=== PATIENT | female | born 1975 | race Caucasian/White ===

== ENCOUNTER 2016-08-24 13:14 | Inpatient (IN) ==
[2016-08-24 15:16] LABS: Basophils % 0.1 % (0.0-0.8); Eosinophils # 0.2 10*3/uL (0.0-0.87); Eosinophils % 2.3 % (0.00-10.9); Hemoglobin 9.7 GM/DL (12.0-16.0); Immature Granulocytes % 1.8 %; Immature Granulocytes Absolute 0.15 #; Lymphocytes # 1.2 10*3/uL (1.4-4.0); Lymphocytes % 14.4 % (21.3-54.2); Mean Corpuscular HGB Conc 33.4 GM/DL (32-36); Mean Corpuscular Hemoglobin 29 PG (27-34); Mean Corpuscular Volume 85.3 FL (87-102); Mean Platelet Volume 9.5 FL (9.6-12.0); Monocytes # 0.7 10*3/uL (0.11-0.8); Monocytes % 7.6 % (1.7-12.7); Neutrophils # 6.3 10*3/uL (1.4-7.4); Neutrophils % 73.8 % (38.7-73.9); Platelet Count 230 T/CUMM (130-400); Red Cell Distribution Width 14.3 % (9.3-17.3); White Blood Count 8.6 T/CUMM (4-12)
[2016-08-24 15:30] LABS: INR 0.9; PT Patient Result 9.4 SECS; Partial Thromboplastin Time 29.9 SECS (0-40)
[2016-08-24 15:37] LABS: Apearance,Urine Slightly Hazy (Clear); Bacteria,Urine Occasional /HPF (Few); Bilirubin,Urine Negative (Negative); Blood, Urine Negative (Negative); Glucose,Urine (UA) Negative (Negative); Ketones,Urine Negative (Negative); Mucus,Urine Occasional /LPF (Occasional); Nitrite,Urine Negative (Negative); Protein,Urine Negative; RBC,Urine 1 /HPF (0-4); Squamous Epithelial Cell,Urine Occasional /HPF (0-10); Urine Color Yellow (Yellow); Urine Urobilinogen < 2.0 EU/DL (0.2-1.0); WBC,Urine 2 /HPF (0-6)
[2016-08-24 15:49] LABS: Albumin 2.4 G/DL (3.4-5.0); Bilirubin,Total 0.5 MG/DL (0.2-1.0); Calcium 8.6 MG/DL (8.5-10.1); Osmolality,Calculated 280.3 MOS/KG (273-304); Potassium 3.8 MMOL/L (3.5-5.1); Total Protein 5.3 G/DL (6.4-8.3); Uric Acid 5.2 MG/DL (2.6-6.0)
--- NOTE | 2016-08-24 15:56 | Ultrasound Report ---
Biophysical profile Clinical history: PIH Comparison: 08/06/2016 Technique: Multiple transabdominal real-time scans were obtained. Limited color flow scans were obtained. Ultrasound images were captured and stored. Findings: +2 is given for breathing, gross body movements, tone and qualitative amniotic fluid volume. The reactive NST was not performed. There is a single intrauterine fetus in the cephalic presentation with a heart rate 157 BPM. Posterior placenta. Impression: Biophysical profile score of 8. Normal , low risk for chronic asphyxia Ultrasound images were captured and stored. PROCEDURE INTERPRETED AT [facility] DEPARTMENT OF RADIOLOGY Final Report Signed by: Dr. Kristen Gardiner
--- NOTE | 2016-08-24 16:01 | Ultrasound Report ---
Exam: US OB >= 14 weeks fetus Date: 08/24/2016 2:43 PM Comparison: 08/06/2016 Indication: IVF, PIH Technique:[Multiple transabdominal real-time scans were obtained of the pelvis. Color-flow scans obtained. Ultrasound images were captured and stored.] Findings: There is a single intrauterine fetus in cephalic presentation with a heart rate 149 BPM. The posterior placenta is not low-lying in position with cervical length of 43 mm. Maternal ovaries are not identified. No measurements were obtained of the cerebellum, cisterna magna, or ventricular atria. Limited evaluation of spine, face, and extremities. No definite pathology is identified on the scans of the heart, stomach, kidneys, bladder, and cord insertion. 3 vessel cord documented. Nuchal cord. S/D ratio 2.4 with normal flow during diastole. No reversal of flow. Measurements obtained are as follows: BPD 38 weeks 5 days HC 37 weeks 4 days AC 39 weeks 2 days FL 36 weeks 1 day EFW 7 lbs. 10 oz. +/- 1 lb. 2 oz. GP greater than 97% WING 157.1 mm FL/AC out of range Impression: Single intrauterine fetus in the cephalic presentation at 38 weeks 0 days +/- 2 weeks 5 days with EDC 09/07/2016. EDC of prior exam 09/18/2016. Nuchal cord. FL/AC out of range which is of questionable significance but follow-up scans may be helpful for further evaluation. PROCEDURE INTERPRETED AT [facility] DEPARTMENT OF RADIOLOGY Final Report Signed by: Dr. Kristen Gardiner
[2016-08-24] MEDS ORDERED: LABETALOL 200 MG TABLET ONE (20:56)
[2016-08-24] MEDS: LABETALOL 200 MG TABLET PO SCH (20:59)
[2016-08-24] MEDS: VERAPAMIL 120 MG TABLET PO SCH (20:59)
[2016-08-25] MEDS: LABETALOL 200 MG TABLET PO SCH ×2 (09:42→21:37)
[2016-08-25] MEDS ORDERED: LABETALOL 300 MG TABLET PO SCH (12:27)
[2016-08-25] MEDS ORDERED: hydrALAZINE 20 MG/1 ML VIAL IV PRN (12:28)
--- NOTE | 2016-08-25 12:57 | OB/GYN History & Physical ---
History of Present Illness History of present illness: ATTENDING COVERING Ms. Matute is a 40 year old female Pt. 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 Godinez. On arrival patient blood pressure noted to be elevated 176/94 and ranged from 140's-190s/70-80s. Pt. kept overnight for observation and blood pressure medication was increased to Labetalol 200mg po TID and pre-E labs drawn along with 24hr urine protein was started. OB u/s for cord dopplers and interval growth with bpp performed. This morning patient complains of mild headache however has hx of migraines. Denies any blurred vision. Pt states her home blood pressures ranged in the 120s/70 up until last week when it was 160/100. Pt. states that for the past week she has not been monitoring her blood pressure. Pt. denies vaginal bleeding, leakage of fluid, decreased movement or contractions. Home Medications Medication Instructions Recorded Confirmed Type Labetalol Tab [Trandate Tab] 200 mg PO DAILY 08/24/16 08/24/16 History Verapamil Tab [Calan Tab] 120 mg PO DAILY 08/24/16 08/24/16 History Allergies Allergy/AdvReac Type Severity Reaction Status Date / Time codeine AdvReac Intermediate Nausea Verified 10/09/15 08:32 12 point system: reviewed and no additional remarkable complaints except as stated Medical,Surgical,& Family Hx - Medical History Neurology: History of: Migraine No history of: Seizures Genitourinary: History of: Kidney Stones Hematology: History of: Blood Disorders (factor VIII) Comment Only: Bleeding Problems (hemophilia) Reproductive: History of: Reproductive Problems (IVF) - Surgical History Reproductive Surgeries: Surgical HX of;: Section, Dilation and Curettage - Social History 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 - Constitutional Vitals: Vital Signs Temp Pulse Resp BP 08/25/16 03:58 97 F L 95 H 17 145/86 08/25/16 00:00 97 F L 76 18 156/77 08/24/16 20:00 98 F 86 17 163/90 08/24/16 16:00 83 20 133/83 General appearance: no acute distress - Antepartum / Post Antepartum Exam Cervix - Dilatation: deferred Heart Rate: category 1 tracing, + accelerations [place]: irritability - Respiratory Respiratory exam: Present: clear to auscultation bilaterally - Cardiovascular Cardiovascular exam: Present: regular rate and rhythm - Extremities Exam Extremities exam: Present: normal inspection, edema Assessment and Plan (1) Chronic hypertension in obstetric context in third trimester Status: Acute Assessment and plan: 1. admit to labor and delivery 2. increase labetalol to 300mg po tid 3. consult with Dr. Escobar regarding pt hx of hemophilia A carrier in case of delivery 4. 24 hr urine protein 5. repeat Pre-E labs 6. cont. ext monitoring 7. I spent 20 minutes discussing with the patient what my concerns were and included superimposed severe pre-E, I explained the plan is to wait until the 24hr urine protein to return unless her blood pressures continued to be elevated and unresponsive to ivp labetalol or hydralazine. Pt. expressed her understanding. all questions answered. Current Visit: Yes (2) Obesity Status: Acute Current Visit: Yes (3) Migraine Status: Acute Current Visit: Yes (4) Advanced maternal age in Status: Acute Current Visit: Yes (5) Hemophilia A carrier, symptomatic Status: Acute Current Visit: No (6) Previous delivery affecting , antepartum Status: Acute Current Visit: Yes Results - Labs CBC & BMP: 08/24/16 15:04 08/24/16 15:04
[2016-08-25 13:57] LABS: INR 0.9; PT Patient Result 9.7 SECS; Partial Thromboplastin Time 29.7 SECS (0-40)
[2016-08-25] MEDS ORDERED: FACTOR VIII IV PRN (14:08)
[2016-08-25 14:24] LABS: Alanine Aminotransferase 19 U/L (13-56); Albumin 2.4 G/DL (3.4-5.0); Alkaline Phosphatase 133 U/L (45-117); Aspartate Amino Transferase 12 U/L (0-37); Bilirubin,Total < 0.39 MG/DL (0.2-1.0); Blood Urea Nitrogen 8 MG/DL (7-18); Calcium 8.6 MG/DL (8.5-10.1); Glucose 96 MG/DL (74-106); Osmolality,Calculated 276.4 MOS/KG (273-304); Potassium 3.9 MMOL/L (3.5-5.1); Sodium 140 MMOL/L (136-145); Total Protein 5.3 G/DL (6.4-8.3)
[2016-08-25 14:38] LABS: Basophils % 0.1 % (0.0-0.8); Eosinophils # 0.2 10*3/uL (0.0-0.87); Eosinophils % 1.8 % (0.00-10.9); Hematocrit 30.2 VOL% (35.7-47.0); Hemoglobin 10.4 GM/DL (12.0-16.0); Immature Granulocytes % 1.6 %; Immature Granulocytes Absolute 0.15 #; Lymphocytes # 1.1 10*3/uL (1.4-4.0); Mean Corpuscular HGB Conc 34.4 GM/DL (32-36); Mean Corpuscular Hemoglobin 29 PG (27-34); Mean Corpuscular Volume 85.1 FL (87-102); Mean Platelet Volume 9.7 FL (9.6-12.0); Monocytes # 0.7 10*3/uL (0.11-0.8); Monocytes % 6.9 % (1.7-12.7); Neutrophils # 7.4 10*3/uL (1.4-7.4); Neutrophils % 77.6 % (38.7-73.9); Platelet Count 236 T/CUMM (130-400); Red Blood Count 3.55 MC/CUMM (3.8-5.5); Red Cell Distribution Width 14.3 % (9.3-17.3); White Blood Count 9.5 T/CUMM (4-12)
[2016-08-25] MEDS ORDERED: ONDANSETRON 4 MG/2 ML VIAL IV PRN (14:39)
[2016-08-25] MEDS: MULTIVITAMIN (PRENATAL) TABLET PO SCH (16:11)
[2016-08-25] MEDS: AMPICILLIN INJ 1,000 MG in SODIUM CHLORIDE 0.9% 100 ML IV SCH ×2 (16:12→21:37)
[2016-08-25] MEDS: ACETAMINOPHEN 325 MG TABLET PO PRN (16:13)
[2016-08-25 18:01] LABS: Collection Time,Urine 24 HOURS; Total Volume,Urine 1800 ML (400-2000)
[2016-08-25 18:06] LABS: Total Protein 24 Hr Ur Result 396 MG/24HR (0-149.1)
[2016-08-25 18:35] LABS: Creatinine 24 Hr Urine Result 1.98 G/24HR (0.60-1.80); Creatinine Clearance Urine 197.03 ML/MIN (70-115)
[2016-08-25] MEDS: VERAPAMIL 120 MG TABLET PO SCH ×2 (19:16→21:35)
[2016-08-25] MEDS: BETAMETH SODIUM PHOS/ACETATE 30 MG/5 ML VIAL IM SCH (19:28)
[2016-08-26] MEDS: AMPICILLIN INJ 1,000 MG in SODIUM CHLORIDE 0.9% 100 ML IV SCH ×4 (03:25→21:09)
[2016-08-26] MEDS: LABETALOL 200 MG TABLET PO SCH ×3 (05:37→21:49)
[2016-08-26] MEDS ORDERED: FACTOR VIII IV PRN (08:50)
--- NOTE | 2016-08-26 08:52 | Oncology Progress Note ---
Oncology Subjective PN Interval history: Female patient with failure a with symptomatic carrier status. The patient received factor last year for a D&C. She is admitted at approximately 35 weeks gestation with hypertension. She appears stable at the moment. Her was at bedside. Her last was performed I believe in [place] in 2011. Preoperative factor was given. She also occasionally requires factor with dental procedures. She states that her baseline factor VIII level is around 27% . This is of course while not . Factor VIII level should rise somewhat during . I have placed an order for 4000 units of factor VIII if she is to proceed with during this hospitalization. I would not anticipate a postoperative dose unless there is evidence of abnormal bleeding Exam - Constitutional Vitals: Period Temp Pulse Resp BP Sys/Newell Pulse Ox Last 24 Hr 97.5 F-98.5 F 75-101 16-18 126-182/60-88 Results - Labs CBC & BMP: 08/25/16 13:25 08/25/16 13:25
[2016-08-26] MEDS: MULTIVITAMIN (PRENATAL) TABLET PO SCH (09:37)
[2016-08-26] MEDS: ACETAMINOPHEN 325 MG TABLET PO PRN (09:37)
--- NOTE | 2016-08-26 11:09 | OB/GYN Progress Note ---
Assessment and Plan (1) Pre-eclampsia added to pre-existing hypertension Status: Acute Assessment and plan: IUP at 35 weeks 4 days with severe PIH. She is requiring 2 medications for her normal BPs. She is due for her next FLM today. I spoke to M in [place], Dr. Cortez who agrees with the plan to deliver tomorrow. Current Visit: Yes (2) Hemophilia A carrier, symptomatic Status: Acute Assessment and plan: for factor VIII tomorrow before delivery. we appreciate Dr. Escobar help Current Visit: No (3) Previous delivery affecting , antepartum Status: Acute Assessment and plan: for repeat tomorrow . R/B/A/C reviewed with the pt Current Visit: Yes DIGITAL MEDIA COORDINATOR - PN: Subj Interval history: The pt is a 40 y/o at 35 wks 4 days wiht IVF donor eggs adn sperm who is well known to me. She is a symptomatic carrier for Hemophlia A and has had a in the past and required recombinant factor VIII. She was admitted for elevated BPs and headaches. Exam DIGITAL MEDIA COORDINATOR - Constitutional Vitals: Vital Signs Temp Pulse Resp BP 08/26/16 08:00 97.8 F 93 H 18 137/75 08/26/16 03:31 97.9 F 92 H 16 126/60 08/25/16 23:41 97.5 F L 101 H 16 132/68 08/25/16 20:00 98.5 F 75 16 182/88 08/25/16 16:00 95 H 18 149/73 08/25/16 15:09 98.3 F General appearance: no acute distress, over weight - Respiratory Respiratory exam: Absent: accessory muscle use - Cardiovascular Cardiovascular exam: Present: regular rate and rhythm - GI/Abdominal GI/Abdominal exam: Absent: guarding, tenderness, rebound - Extremities Exam Extremities exam: Present: calf tenderness - Neurological Exam Neurological exam: Present: alert, oriented X3, reflexes normal - Psychiatric Psychiatric exam: Present: normal affect, normal mood Results - Labs CBC & BMP: 08/25/16 13:25 08/25/16 13:25 - Diagnostic Findings Procedure: Uterus-Nonstress Test: other (cat 1, no contractions)
[2016-08-26] MEDS: BETAMETH SODIUM PHOS/ACETATE 30 MG/5 ML VIAL IM SCH (19:30)
[2016-08-26] MEDS: VERAPAMIL 120 MG TABLET PO SCH (21:08)
[2016-08-27] MEDS: AMPICILLIN INJ 1,000 MG in SODIUM CHLORIDE 0.9% 100 ML IV SCH ×3 (03:05→17:10)
[2016-08-27] MEDS: LABETALOL 200 MG TABLET PO SCH ×2 (05:40→17:05)
[2016-08-27] MEDS ORDERED: FAMOTIDINE 20 MG/2 ML VIAL IV ONE (09:59)
[2016-08-27] MEDS ORDERED: CITRIC ACID/SODIUM CITRATE 30 ML UDCUP PO ONE (09:59)
[2016-08-27] MEDS ORDERED: OXYTOCIN/LR 20 UNIT/1,000 ML BAG IV ONE (10:01)
[2016-08-27] MEDS ORDERED: ceFAZolin 2,000 MG in PREMIX 1 EACH IV ONE (10:01)
[2016-08-27] MEDS: MULTIVITAMIN (PRENATAL) TABLET PO SCH (11:14)
--- NOTE | 2016-08-27 12:13 | OB/GYN Progress Note ---
Assessment and Plan (1) Pre-eclampsia added to pre-existing hypertension Status: Acute Assessment and plan: IUP at 35 weeks 4 days with severe PIH. For repeat today. If BP normalize we will not do Magnsium sulfate Current Visit: Yes (2) Hemophilia A carrier, symptomatic Status: Acute Assessment and plan: for factor VIII tomorrow before delivery as per dose calculated by Dr. Escobar Current Visit: No (3) Previous delivery affecting , antepartum Status: Acute Assessment and plan: R/B/A/C of a repeat under general anesthesia reviewed with the pt. 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 She still has a headache. We will proceed with a repeat today. Exam MANAGER CUSTOMER SERVICE - Constitutional Vitals: Vital Signs Temp Pulse Resp BP Pulse Ox 08/27/16 04:00 91 H 18 134/91 08/26/16 23:37 97.8 F 94 H 20 140/77 98 08/26/16 20:00 97.6 F 81 18 143/86 99 08/26/16 16:00 98.0 F 96 H 18 132/76 General appearance: over weight - Respiratory Respiratory exam: Absent: accessory muscle use - Cardiovascular Cardiovascular exam: Present: regular rate and rhythm - GI/Abdominal GI/Abdominal exam: Absent: guarding, tenderness, rebound - Extremities Exam Extremities exam: Absent: calf tenderness Results - Labs CBC & BMP: 08/25/16 13:25 08/25/16 13:25 - Diagnostic Findings Procedure: Uterus-Nonstress Test: other (cat 1)
[2016-08-27] MEDS ORDERED: PROPOFOL 200 MG/20 ML VIAL IV ONE (13:19)
[2016-08-27] MEDS ORDERED: ONDANSETRON 4 MG/2 ML VIAL ONE (13:19)
[2016-08-27] MEDS ORDERED: SUCCINYLCHOLINE 200 MG/10 ML VIAL ONE (13:19)
[2016-08-27] MEDS ORDERED: LIDOCAINE 100 MG/5 ML SYRINGE ONE (13:19)
[2016-08-27 14:17] LABS: Apearance,Urine CLEAR (Clear); Bilirubin,Urine Negative (Negative); Blood, Urine Negative (Negative); Glucose,Urine (UA) Negative (Negative); Ketones,Urine 20 mg/dL (Negative); Mucus,Urine Occasional /LPF (Occasional); Nitrite,Urine Negative (Negative); Protein,Urine Negative; RBC,Urine 1 /HPF (0-4); Squamous Epithelial Cell,Urine Occasional /HPF (0-10); Urine Color Yellow (Yellow); Urine Specific Gravity 1.023 (1.001-1.035); Urine Urobilinogen < 2.0 EU/DL (0.2-1.0); WBC,Urine 1 /HPF (0-6)
--- NOTE | 2016-08-27 14:31 | Operative Note ---
Date of procedure: 08/27/16 Pre-op diagnosis: IUP at 35 wks, hx , severe PIH, hemophilia A carrier Post-op diagnosis: same Procedure: Repeat Findings : boy, apgars 7 and 8, wt 6 pounds 5 ounce The patient was consented for repeat section risks benefits and alternatives were reviewed with patient she was amenable to the procedure. The patient elected to have general anesthesia and even after counseling on possible spinal anesthesia. Factor VIII was provided within 30 minutes of the procedure patient was thus taken back to the operating room where general anesthesia was found to be adequate and after the patient was prepped and draped in sterile fashion. A Pfannenstiel skin incision was made carried out to the underlying fascia the fascia was incised in the midline and extended laterally with Galvez scissors. Superior aspect the fascial incision was dissected off the rectus muscle. The rectus muscle was divided in the midline peritoneum identified and entered sharply with Metzenbaum scissors extended superiorly and fairly with good visualization of the bladder. The bladder blade was inserted and the vesicouterine peritoneum identified and entered sharply with Metzenbaum scissors extended laterally the bladder flap was then created digitally. The lower uterine segment was incised with a scalpel and extended laterally the infant's head was delivered atraumatically there was a nuchal cord that was reduced and once the head was delivered. The infant was handed off to the waiting heating and air conditioning mechanic after the nuchal cord was clamped and cut. The placenta was removed manually the uterus cleared of all clots and debris with a clean dry sponge. The uterus was exteriorized ovaries tubes and uterus looked within normal limits. The lower uterine segment was repaired using 0 Vicryl in a running locked fashion with a second indicating layer to achieve excellent hemostasis. The uterus was reintroduced into the abdominal cavity copious irrigation was performed the gutters were cleared of all clots and debris. Surgicel was placed over the lower uterine segment and Interceed over the anterior surface of the uterine segment. The peritoneum was reapproximated using 3-0 Vicryl in a running fashion the muscle was reapproximated using 3-0 Vicryl in interrupted fashion. The fascia was reapproximated using 0 Vicryl in a running fashion starting either angle and tying the middle. The subcutaneous fat was reapproximated using 3-0 Vicryl in a running fashion. The skin was reapproximated using Ensor suture pineda. Sponge lap management counts were correct 3 the patient went to the recovery room in stable condition. Anesthesia: KOA Surgeon / Physician: Machelle Shaikh Estimated blood loss: other (700) Urine output: 300 (clear) Specimens: none sent Condition: stable Results - Labs CBC & BMP: 08/25/16 13:25 08/25/16 13:25 Discharge Plan - Discharge Medications No Action Verapamil Tab [Calan Tab] 120 mg PO DAILY Labetalol Tab [Trandate Tab] 200 mg PO DAILY - Follow Up or Referral - Forms/Instructions
[2016-08-27] MEDS ORDERED: fentaNYL 100 MCG/2 ML VIAL ONE (14:39)
[2016-08-27] MEDS ORDERED: MIDAZOLAM 2 MG/2 ML VIAL ONE (14:40)
[2016-08-27] MEDS ORDERED: hydrOXYzine HCL 25 MG/1 ML VIAL IM PRN (14:44)
[2016-08-27] MEDS ORDERED: diphenhydrAMINE 50 MG/1 ML VIAL IV PRN ×2 (14:44)
[2016-08-27] MEDS ORDERED: HYDROmorphone PCA 30 MG/30 ML SYRINGE IV SCH (15:00)
--- NOTE | 2016-08-27 15:12 | Anesthesia Post-Op ---
Anesthesia Post OP - Post Ansesthetic Evaluation Patient seen in post op: Yes Resp: within normal limits CV: within normal limits Mental: within normal limits Temp: within normal limits [id number]: within normal limits Nausea and Vomiting: within normal limits Pain: within normal limits
[2016-08-27] MEDS ORDERED: RHO(D) IMMUNE GLOBULIN 300 MCG SYRINGE IM ONE (17:06)
[2016-08-27] MEDS ORDERED: ONDANSETRON 4 MG/2 ML VIAL IV PRN (20:00)
[2016-08-27] MEDS: DOCUSATE SODIUM 100 MG CAPSULE PO SCH ×2 (21:26→22:30)
[2016-08-27] MEDS: VERAPAMIL 120 MG TABLET PO SCH (22:30)
[2016-08-28 05:30] LABS: Basophils % 0.2 % (0.0-0.8); Eosinophils # 0.1 10*3/uL (0.0-0.87); Eosinophils % 0.6 % (0.00-10.9); Hematocrit 26.4 VOL% (35.7-47.0); Hemoglobin 8.6 GM/DL (12.0-16.0); Immature Granulocytes % 2.4 %; Immature Granulocytes Absolute 0.25 #; Lymphocytes # 1.2 10*3/uL (1.4-4.0); Lymphocytes % 11.3 % (21.3-54.2); Mean Corpuscular HGB Conc 32.6 GM/DL (32-36); Mean Corpuscular Hemoglobin 29 PG (27-34); Mean Platelet Volume 9.5 FL (9.6-12.0); Monocytes % 9.4 % (1.7-12.7); Neutrophils % 76.1 % (38.7-73.9); Platelet Count 202 T/CUMM (130-400); White Blood Count 10.6 T/CUMM (4-12)
[2016-08-28] MEDS: LACTATED RINGERS 1,000 ML IV SCH ×2 (06:30→07:06)
[2016-08-28] MEDS: oxyCODONE/ACETAMINOPHEN 5-325 MG TABLET PO PRN ×3 (06:45→20:00)
[2016-08-28] MEDS ORDERED: oxyCODONE/ACETAMINOPHEN 5-325 MG TABLET ONE (06:51)
[2016-08-28] MEDS ORDERED: oxyCODONE/ACETAMINOPHEN 5-325 MG TABLET PO PRN (07:00)
[2016-08-28] MEDS ORDERED: LABETALOL 200 MG TABLET PO SCH ×2 (09:00→15:00)
[2016-08-28] MEDS: MULTIVITAMIN (PRENATAL) TABLET PO SCH (09:07)
[2016-08-28] MEDS: DOCUSATE SODIUM 100 MG CAPSULE PO SCH ×2 (09:07→21:30)
--- NOTE | 2016-08-28 10:20 | OB/GYN Progress Note ---
Assessment and Plan (1) Pre-eclampsia added to pre-existing hypertension Status: Acute Assessment and plan: POD#1 s/p repeat at 35 weeks due to severe PIH. We did not need to do PP Magnesium Sulfate. Her BPs are stable at this time on Labetolol and we will add back the Verapamil at night for her Migraines and this may help with the BPs as well. Current Visit: Yes (2) Hemophilia A carrier, symptomatic Status: Acute Assessment and plan: s/p preop factor VIII yesterday. the pt's bleeding is under control at this time Current Visit: No SUPERVISOR PRODUCT INSPECTION - PN: Subj Interval history: The pt is a little sore but is otherwise doing well. Her pain is under control as is her bleeding. Exam SUPERVISOR PRODUCT INSPECTION - Constitutional Vitals: Vital Signs Temp Pulse Pulse Resp BP BP Pulse Ox 08/28/16 09:26 18 08/28/16 08:00 98.1 F 93 H 20 155/88 08/28/16 03:45 97.5 F L 97 H 97 H 20 143/90 143/90 97 08/28/16 01:54 18 08/28/16 00:00 97 F L 85 85 20 147/76 147/76 97 08/27/16 19:55 97 F L 96 H 96 H 20 141/88 141/88 98 08/27/16 17:55 97.0 F L 90 90 16 158/88 158/88 95 08/27/16 15:30 85 20 164/87 08/27/16 14:44 20 Pulse Ox 08/28/16 09:26 08/28/16 08:00 98 08/28/16 03:45 97 08/28/16 01:54 08/28/16 00:00 97 08/27/16 19:55 98 08/27/16 17:55 95 08/27/16 15:30 08/27/16 14:44 General appearance: no acute distress, over weight - Respiratory Respiratory exam: Absent: accessory muscle use - Cardiovascular Cardiovascular exam: Present: regular rate and rhythm - GI/Abdominal GI/Abdominal exam: Present: normal bowel sounds, soft, other (dressing clean and dry). Absent: guarding, rebound - Extremities Exam Extremities exam: Absent: calf tenderness - Neurological Exam Neurological exam: Present: alert, oriented X3 - Psychiatric Psychiatric exam: Present: normal affect, normal mood - Skin Skin exam: Present: normal color Results - Labs CBC & BMP: 08/28/16 05:09 08/25/16 13:25
--- NOTE | 2016-08-28 10:23 | Discharge Summary ---
Hospital Course - Hospital Course Hospital Course: The pt was admitted at 35+ weeks for elevated BPs. She was monitored and FLM was provided and the tne pt underwent a repeat under general anesthesia. Heme/onc was consulted due to the pt being a symptomatic carrier for Hemophilia and she received recombinant factor VIII prior to her . The pt did well. Diagnosis - Discharge Diagnosis (1) Pre-eclampsia added to pre-existing hypertension Status: Acute (2) Hemophilia A carrier, symptomatic Status: Acute Discharge Plan - Discharge Medications New oxyCODONE/ACETAMINOPHEN 5-325 [Percocet 5-325] 1 - 2 tablet PO Q6H PRN #30 tablet PRN Reason: Abdominal Pain No Action Verapamil Tab [Calan Tab] 120 mg PO DAILY Labetalol Tab [Trandate Tab] 200 mg PO DAILY - Follow Up or Referral - Forms/Instructions Exam - Constitutional Vitals: Period Temp Pulse Resp BP Sys/Newell Pulse Ox Last 24 Hr 97 F-98.1 F 85-97 16-20 141-164/76-90 95-98 Discharge Results Labs on day of discharge: Labs from last 24 hours 08/28/16 08/27/16 05:09 13:00 WBC 10.6 RBC 3.00 L Hgb 8.6 L Hct 26.4 L MCV 88.0 MCH 29 MCHC 32.6 RDW 15.0 Plt Count 202 MPV 9.5 L Neut % (Auto) 76.1 H Lymph % (Auto) 11.3 L [place] % (Auto) 9.4 Eos % (Auto) 0.6 Baso % (Auto) 0.2 Neut # (Auto) 8.0 H Lymph # (Auto) 1.2 L [place] # (Auto) 1.0 H Eos # (Auto) 0.1 Baso # (Auto) 0.0 Immature Gran % 2.4 Nucleated RBC % 0.0 Immature Gran # 0.25 Nucleated RBCs # 0.00 Urine Color Yellow Urine Appearance Clear Urine pH 6.0 Ur Specific [place] 1.023 Urine Protein Negative Urine Glucose (UA) Negative Urine Ketones 20 Urine Blood Negative Urine Nitrate Negative Urine Bilirubin Negative Urine Urobilinogen < 2.0 H Urine Leukocytes Negative Urine RBC 1 Urine WBC 1 Ur Squamous Epith Cells Occasional Urine Mucus Occasional Ur Culture Indicated? Not indicated DS: Provider Date of admission: 08/24/16 13:15 Attending physician on admission: Machelle Quan- Consults: 08/25/16 14:39 Consult to Anesthesiology [CONS] Routine Consulting Provider: Reason for Anesthesiology: Epidural Consult Comment: Epidural for pain managment 08/27/16 17:07 Consult to Hop Picker [CONS] Routine Consult Hop Picker: Breast Feeding Discharging clinician: Machelle Quan-
[2016-08-28] MEDS: SIMETHICONE CHEW 80 MG TABLET PO PRN ×2 (14:23→21:51)
[2016-08-28] MEDS: MAGNESIUM HYDROXIDE SUSP 30 ML UDCUP PO PRN ×2 (14:23→21:51)
[2016-08-28 16:01] LABS: Hematocrit 27.4 VOL% (35.7-47.0); Hemoglobin 9.1 GM/DL (12.0-16.0)
[2016-08-28] MEDS: VERAPAMIL 120 MG TABLET PO SCH (21:30)
[2016-08-29] MEDS: oxyCODONE/ACETAMINOPHEN 5-325 MG TABLET PO PRN ×5 (02:00→20:30)
[2016-08-29] MEDS: SIMETHICONE CHEW 80 MG TABLET PO PRN ×3 (05:20→20:33)
[2016-08-29] MEDS: MULTIVITAMIN (PRENATAL) TABLET PO SCH (09:45)
[2016-08-29] MEDS: DOCUSATE SODIUM 100 MG CAPSULE PO SCH ×2 (09:45→20:34)
[2016-08-29] MEDS: LABETALOL 200 MG TABLET PO SCH ×2 (09:49→14:28)
[2016-08-29] MEDS ORDERED: HYDROCORTISONE 1% CREAM 28 GM TUBE TOP PRN (12:47)
--- NOTE | 2016-08-29 12:56 | OB/GYN Progress Note ---
PRIMARY CARE PROVIDER - PN: Subj Interval history: No problems or complaints escept nonspecific groin rash. Exam PRIMARY CARE PROVIDER - Constitutional Vitals: Vital Signs Temp Pulse Resp BP Pulse Ox 08/29/16 12:00 97.7 F 97 H 16 136/74 97 08/29/16 08:00 97.8 F 100 H 16 131/79 98 08/29/16 04:05 97.1 F L 81 20 125/72 96 08/29/16 02:00 20 08/29/16 00:00 97.1 F L 89 18 135/70 99 08/28/16 20:00 99.1 F 99 H 18 121/73 99 08/28/16 16:00 98.8 F 96 H 20 142/77 97 08/28/16 14:00 98.1 F 96 H 20 157/84 99 General appearance: no acute distress - Head Head exam: Present: normal inspection - Neck Neck exam: Present: normal inspection - Respiratory Respiratory exam: Present: clear to auscultation bilaterally. Absent: accessory muscle use - Cardiovascular Cardiovascular exam: Present: regular rate and rhythm - GI/Abdominal GI/Abdominal exam: Present: soft (fundus tonic). Absent: tenderness - Extremities Exam Extremities exam: Present: normal inspection - Back Exam Back exam: Present: normal inspection - Psychiatric Psychiatric exam: Present: normal affect, normal mood - Skin Skin exam: Present: normal color, warm, dry Results - Labs CBC & BMP: 08/28/16 15:33 08/25/16 13:25
[2016-08-29] MEDS: MAGNESIUM HYDROXIDE SUSP 30 ML UDCUP PO PRN (20:33)
[2016-08-29] MEDS: VERAPAMIL 120 MG TABLET PO SCH (20:34)
[2016-08-30] MEDS: oxyCODONE/ACETAMINOPHEN 5-325 MG TABLET PO PRN ×2 (02:45→08:51)
[2016-08-30] MEDS: MULTIVITAMIN (PRENATAL) TABLET PO SCH (08:51)
[2016-08-30] MEDS: DOCUSATE SODIUM 100 MG CAPSULE PO SCH (08:51)
[2016-08-30] MEDS: LABETALOL 200 MG TABLET PO SCH ×2 (08:53→15:16)
[2016-08-30] MEDS: SIMETHICONE CHEW 80 MG TABLET PO PRN (09:04)
--- NOTE | 2016-08-30 16:14 | OB/GYN Progress Note ---
Assessment and Plan (1) Previous delivery affecting , delivered Problem details: No problems, ready to go home. Status: Acute Current Visit : Yes CURRICULUM ASSISTANT PRINCIPAL - PN: Subj Interval history: No complaints, is desirous going home today. The infant has been discharged. Patient has had no abnormal bleeding and the slightest degree. Exam CURRICULUM ASSISTANT PRINCIPAL - Constitutional Vitals: Vital Signs Temp Pulse Resp BP Pulse Ox 08/30/16 08:00 97.8 F 78 14 136/87 100 08/30/16 06:00 18 08/30/16 04:00 97.6 F 84 18 156/71 99 08/30/16 02:00 18 08/30/16 00:00 98.6 F 88 18 128/69 98 08/29/16 20:00 98.7 F 98 H 18 136/79 96 General appearance: no acute distress - Head Head exam: Present: normal inspection - Neck Neck exam: Present: normal inspection - Respiratory Respiratory exam: Present: clear to auscultation bilaterally. Absent: accessory muscle use - Cardiovascular Cardiovascular exam: Present: regular rate and rhythm - GI/Abdominal GI/Abdominal exam: Present: organomegaly (Fundus tonic and nontender), soft. Absent: tenderness - Extremities Exam Extremities exam: Present: normal inspection - Back Exam Back exam: Present: normal inspection - Neurological Exam Neurological exam: Present: alert, oriented X3 - Psychiatric Psychiatric exam: Present: normal affect, normal mood - Skin Skin exam: Present: normal color, warm, dry Results - Labs CBC & BMP: 08/28/16 15:33 08/25/16 13:25
[2016-08-30 17:02] VITALS: BP 133/79
== END 2016-08-30 20:08 | disposition home or self-care (01) | DRG 765 ==
LOC: N.LDOUT 13:14 → N.LD 13:15 → N.OB 08-27 17:26
PROVIDERS: ADMIT Obstetrics & Gynecology; ATTEND Obstetrics & Gynecology
PROC: LDCSECT (ICD-10-PCS; 2016-08-27 13:00)